=== PATIENT | male | born 1985 | race Asian ===

== ENCOUNTER 2022-02-23 20:36 | Observation (INO) | payer OTHER, SELFPAY ==
[2022-02-23 22:08] LABS: #Eosinphils 0.1 10x3/uL (0.0-0.5); #Monocytes 0.6 10x3/uL (0.0-1.1); #Neutrophils 3.9 10x3/uL (1.5-8.4); %Basophils 0.4 % (0.0-2.0); %Eosinophils 1.7 % (0.0-6.0); %Lymphocytes 38.1 % (18.0-47.0); %Monocytes 8.4 % (0.0-10.0); Hemoglobin 13.3 g/dL (13.5-17.5); Mean Corpuscular HGB CONC 35.3 g/dL (32.0-36.0); Mean Corpuscular Hemoglobin 28.4 pg (27.0-33.0); Mean Corpuscular Volume 80.4 fl (81.2-95.1); Mean Platelet Volume 10.7 fl (7.4-10.4); Platelet Count 173 10x3/uL (150-450); RBC Distribution Width 12.5 % (11.5-14.5); Red Blood Cell (RBC) Count 4.69 10x6/uL (4.32-5.72); White Blood Cell (WBC) Count 7.6 10x3/uL (3.5-10.5)
[2022-02-23] MEDS ORDERED: Ondansetron PF 4 MG/2 ML Vial ONE (22:17)
[2022-02-23] MEDS ORDERED: Piperacillin/Tazobactam 3.375 GM VIAL ONE (22:17)
[2022-02-23] MEDS ORDERED: Morphine 4 MG/ML VIAL ONE (22:17)
[2022-02-23 22:18] LABS: Bilirubin Neg (Negative); Blood, Urine Negative (Negative); Clarity Clear (Clear); Glucose, Urine (Dipstick) Normal (Negative); Ketone, Urine Negative (Negative); Leukocyte Negative (Negative); Nitrite Negative (Negative); Protein, Urine (Dipstick) Negative (Neg-Trace); Specific Gravity, Urine 1.025 (1.002-1.036); Urobilinogen Normal mg/dL (Less than 2)
[2022-02-23 22:27] LABS: ALT (SGPT) 24 U/L (8-55); AST (SGOT) 16 U/L (5-34); Albumin 4.2 g/dL (3.5-5.0); Alkaline Phosphatase 80 U/L (40-110); Anion Gap 12 mmol/L (10-20); BUN (Urea Nitrogen) 14 mg/dL (8.9-20.6); Bilirubin, Total 0.3 mg/dL (0.2-1.2); Calc. Creatinine Clearance 0 mL/min (70-130); Calcium 9.4 mg/dL (7.8-10.44); Carbon Dioxide 24 mmol/L (22-29); Chloride 105 mmol/L (98-107); Estimated GFR 114; Globulin 2.8 g/dL (2.4-3.5); Glucose 97 mg/dL (70-105); Lipase 100 U/L (8-78); Potassium 3.7 mmol/L (3.5-5.1); Sodium 137 mmol/L (136-145)
[2022-02-23 23:21] LABS: SARS-CoV-2 NAA Rapid Test Not Detected (NotDetected)
[2022-02-23 23:41] VITALS: BMI 32.8
[2022-02-24] MEDS ORDERED: Morphine 4 MG/ML VIAL SLOW IVP PRN (01:11)
[2022-02-24] MEDS ORDERED: Ondansetron PF 4 MG/2 ML Vial IVP PRN ×2 (01:11→08:27)
[2022-02-24] MEDS ORDERED: Sodium Chloride 0.9% 1,000 ML IV SCH (01:30)
[2022-02-24] MEDS ORDERED: Piperacillin/Tazobactam 3.375 GM in Sodium Chloride 0.9% 100 ML IVPB SCH (02:30)
[2022-02-24] MEDS ORDERED: Lidocaine 1% PF 5 ML VIAL ONE ×2 (08:04→09:48)
[2022-02-24] MEDS ORDERED: Rocuronium Bromide 10 MG/ML (10ML VIAL) ONE ×2 (08:04→09:48)
[2022-02-24] MEDS ORDERED: Dexamethasone 4 mg/ml Vial ONE ×2 (08:04→09:48)
[2022-02-24] MEDS ORDERED: PROPOFOL 20 ML ONE ×2 (08:04→09:32)
[2022-02-24] MEDS ORDERED: Ondansetron PF 4 MG/2 ML Vial ONE ×2 (08:04→09:48)
[2022-02-24] MEDS ORDERED: Midazolam HCl 2 mg/2 ml Vial ONE (08:25)
[2022-02-24] MEDS ORDERED: Promethazine HCl 25 MG/ML VIAL IM PRN (08:27)
[2022-02-24] MEDS ORDERED: Dextrose 5% in Water 1,000 ML IV PRN (08:27)
[2022-02-24] MEDS ORDERED: hydrALAZINE 20 MG/ML VIAL SLOW IVP PRN (08:27)
[2022-02-24] MEDS ORDERED: Dextrose 50% Abboject 50 ML SYRINGE SLOW IVP PRN (08:27)
[2022-02-24] MEDS ORDERED: Bupivacaine 0.25% HCL 30 ML VIAL ONE (08:28)
[2022-02-24] MEDS ORDERED: EPINEPHrine 1 MG/ML AMP ONE (08:28)
[2022-02-24] MEDS ORDERED: Fentanyl 250 MCG/5 ML VIAL ONE (08:53)
[2022-02-24] MEDS ORDERED: Glycopyrrolate 0.2 MG/ML 5 ML SYRINGE ONE (09:28)
[2022-02-24] MEDS ORDERED: Ketorolac Tromethamine 30 MG/ML VIAL ONE (09:48)
[2022-02-24] MEDS: Famotidine/PF 20 mg/2ml Vial SLOW IVP SCH ×2 (10:54→21:49)
[2022-02-24] MEDS: D5 1/2 NS w/20 mEq KCL 1,000 ML IV SCH ×2 (10:54→17:15)
[2022-02-24] MEDS: Morphine 2 MG/ML VIAL SLOW IVP PRN ×2 (11:09→14:34)
[2022-02-24] MEDS: Ketorolac Tromethamine 30 MG/ML VIAL IVP SCH ×2 (11:20→18:48)
[2022-02-24] MEDS: HYDROcodone/Acetaminophen 10/325 mg Tablet PO PRN ×3 (12:01→21:49)
[2022-02-24] MEDS ORDERED: Docusate 100 MG CAP PO SCH (18:45)
[2022-02-25] MEDS: Ketorolac Tromethamine 30 MG/ML VIAL IVP SCH ×3 (00:36→11:54)
[2022-02-25] MEDS: D5 1/2 NS w/20 mEq KCL 1,000 ML IV SCH ×2 (03:17→10:45)
[2022-02-25] MEDS: Famotidine/PF 20 mg/2ml Vial SLOW IVP SCH (08:52)
[2022-02-25] MEDS: HYDROcodone/Acetaminophen 10/325 mg Tablet PO PRN (08:53)
[2022-02-25] MEDS ORDERED: Docusate 100 MG CAP PO SCH (09:00)
[2022-02-25 11:55] VITALS: BP 107/74; TEMP 96.8
== END 2022-02-25 11:56 | disposition home or self-care (01) ==
LOC: CSHERS 20:36 → UNDOADMOB 23:18 → CSHTELE 23:18
PROVIDERS: ADMIT Surgery; ATTEND Surgery
PROC: 0DTJ4ZZ Resection of Appendix, Percutaneous Endoscopic Approach (ICD-10-PCS; principal; 2022-02-24)
DX: K35.80 Unspecified acute appendicitis (principal); F32.A Depression, unspecified; Z87.442 Personal history of urinary calculi; Z79.899 Other long term (current) drug therapy; Z87.891 Personal history of nicotine dependence; Z20.822 Contact with and (suspected) exposure to COVID-19
CPT/HCPCS: 74176; 80053; 81003; 83690; 85025; 88304; 94760; 96365; 96375; 96376; A4649; C1713; G0378; J0171; J1100; J1885; J2250; J2270; J2405; J2543; J2704; J3010; J3480; J3490; J7050; S0020; S0028; U0002